=== PATIENT | female | born 1965 | race Caucasian/White ===

== ENCOUNTER → 2018-02-10 | Outpatient (CLI) | payer OTHER, BC ==
[~2018-02-10] MED LIST: ACETAMINOPHEN325 M1 PO; CIPROFLOXACIN500 M3 PO; COLACE100 MG PO; HYDROCODON-ACE1 EAC7 PO; IBUPROFEN 600600 M1 PO; MULTIPLE VITAM1 EAC1 PO; NORCO 5-325 TA1 EACH PO; PHENERGAN 25 MG25 MG PO
== END ==
LOC: M.ULTRA 15:30
DX: E04.2 Nontoxic multinodular goiter (principal)

== ENCOUNTER 2020-12-31 15:38 | Emergency (ER) | payer OTHER ==
[~2020-12-31] VITALS: Ht 177.8 cm; Wt 99.3 kg
[2020-12-31] MEDS ORDERED: LEVO-T50 MCG PO (15:46)
[2020-12-31] MEDS ORDERED: CULTURELLE1 EAC1 PO (15:46)
[2020-12-31] MEDS ORDERED: DICLOFENAC SODI75 MG PO (15:46)
[2020-12-31] MEDS ORDERED: ZYRTEC10 M4 PO (15:46)
[2020-12-31] MEDS ORDERED: D3-200050 MCG PO (15:47)
[2020-12-31] MEDS ORDERED: DAILY VITE1 EAC1 PO (15:47)
[2020-12-31] MEDS ORDERED: COZAAR 50 MG TA50 M1 PO (15:47)
[2020-12-31 17:35] LABS: ABSOLUTE EOSINOPHILS 0.2 thou/uL (0.0-0.7); ABSOLUTE LYMPHOCYTES 3.4 thou/uL (0.8-5.3); ABSOLUTE MONOCYTES 0.6 thou/uL (0.0-1.2); ABSOLUTE NEUTROPHILS 3.6 thou/uL (1.6-8.1); BASOPHILS 0.4 %; EOSINOPHILS 2.9 %; HEMATOCRIT 40.7 % (37.0-47.0); HEMOGLOBIN 13.9 gm/dL (12.0-15.0); LYMPHOCYTES 43.9 %; MCH 30.1 pg (26.0-34.0); MCHC 34.1 g/dL (28.0-37.0); MONOCYTES 7.1 %; MPV 7.2 fl. (7.2-11.1); NUCLEATED RBCS 0 /100WBC; PLATELET COUNT* 238 thou/uL (150-400); POLYS 45.7 %; RBC 4.63 mil/uL (4.20-5.00); RDW-CV 13.2 % (10.5-14.5); WBC 7.8 thou/uL (4.0-11.0)
[2020-12-31 17:49] LABS: CALCIUM 9.4 mg/dL (8.5-10.1); CREATININE 0.9 mg/dL (0.6-1.3); POTASSIUM 3.9 mmol/L (3.5-5.1)
[2020-12-31 17:53] LABS: ALBUMIN 3.9 g/dL (3.4-5.0); TOTAL BILIRUBIN 0.3 mg/dL (<0.1-1.0)
[2020-12-31 18:37] VITALS: BP 149/87
== END 2020-12-31 18:37 | disposition home or self-care (01) ==
LOC: M.ERS 15:38
PROVIDERS: Family Medicine
DX: R10.84 Generalized abdominal pain (principal); Z91.041 Radiographic dye allergy status; Z88.0 Allergy status to penicillin; Z88.2 Allergy status to sulfonamides; Z88.5 Allergy status to narcotic agent; Z90.49 Acquired absence of other specified parts of digestive tract; Z90.710 Acquired absence of both cervix and uterus; Z87.442 Personal history of urinary calculi